=== PATIENT | female | born 1960 | race American Indian/Alaskan Native ===

== ENCOUNTER 2018-12-04 01:22 | Emergency (ER) | payer OTHER ==
[2018-12-04 01:28] VITALS: BP 141/85
[2018-12-04] MEDS ORDERED: ZOFRAN IV ONE (01:44)
[2018-12-04] MEDS ORDERED: DILAUDID IV ONE (01:44)
[2018-12-04] MEDS ORDERED: BOOSTRIX IM ONE (01:45)
--- NOTE | 2018-12-04 01:53 | Emergency Department Report ---
HPI - General Chief Complaint: Extremity Injury, Upper Time Seen by Provider: 12/04/18 01:40 - HPI HPI: Room 35 The patient is a 58-year-old female presenting with a chief complaint of right wrist pain after fall. The patient states just prior to arrival a dog began running at her and she fell backwards while trying to get away landing on her right wrist. Patient denies loss of consciousness. Patient complains of pain in the right wrist only. Patient states she was not bitten by the dog. Patient gets her pain score of 9/10 ED Past Medical Hx - Past Medical History Previous Medical History?: No - Surgical History Past Surgical History?: Yes Additional Surgical History: fibroids - Family History Family history: no significant - Social History Smoking Status: Never Smoker Substance Use Type: None, Alcohol (occasional) - Medications Home Medications: Home Medications Medication Instructions Recorded Confirmed Last Taken Type HYDROcodone/APAP 5-325 [[place] 1 - 2 each PO Q6HR PRN #30 tablet 12/04/18 Unknown Rx 5/325] Ibuprofen [Motrin 800 MG tab] 800 mg PO Q8HR PRN #20 tablet 12/04/18 Unknown Rx ED Review of Systems ROS: Stated complaint: RIGHT WRIST PAIN Other details as noted in HPI Constitutional: no symptoms reported Eyes: denies: eye pain ENT: denies: throat pain Respiratory: no symptoms reported Cardiovascular: denies: chest pain Endocrine: no symptoms reported Gastrointestinal: denies: abdominal pain Genitourinary: denies: dysuria Musculoskeletal: arthralgia Skin: other (abrasion to right elbow) Neurological: denies: headache Physical Exam - Physical Exam Vital Signs: Vital Signs 12/04/18 01:25 Temperature 98 F Pulse Rate 85 Respiratory 12 Rate Blood Pressure 141/85 O2 Sat by Pulse 98 Oximetry Physical Exam: GENERAL: The patient is well-developed well-nourished female sitting in chair appearing to be mild discomfort HEENT: Normocephalic. Atraumatic. Extraocular motions are intact. Patient has moist mucous membranes. NECK: Supple. Trachea midline CHEST/LUNGS: Clear to auscultation. There is no respiratory distress noted. HEART/CARDIOVASCULAR: Regular. There is no tachycardia. ABDOMEN: Abdomen is soft, nontender. Patient has normal bowel sounds. There is no abdominal distention. SKIN: There is no rash. There is no edema. There is no diaphoresis. NEURO: The patient is awake, alert, and oriented. The patient is cooperative. The patient has no focal neurologic deficits. The patient has normal speech and gait. MUSCULOSKELETAL: There is pain to the right distal radius ED Course Vital Signs 12/04/18 01:25 Temperature 98 F Pulse Rate 85 Respiratory 12 Rate Blood Pressure 141/85 O2 Sat by Pulse 98 Oximetry ED Medical Decision Making - Radiology Data Radiology results: report reviewed (right wrist x-ray), image reviewed (right wrist x-ray) interpreted by me: Right wrist [id number] radius fracture [facility] [address] [place] [address] XRay Report Signed Patient: GENI PREEYRA MR#: [id number] : 1960 Acct:[id number] Age/Sex: 58 / F ADM Date: 12/04/18 Loc: ED Attending Dr: Ordering Physician: JAYSON BURNHAM Date of Service: 12/04/18 Procedure(s): XR wrist 2V RT Accession Number(s): [id number] cc: JAYSON BURNHAM Fluoro Time In Minutes: RIGHT WRIST, 2 VIEWS 12/04/2018 INDICATION / CLINICAL INFORMATION: pain and swelling, S/P fall. COMPARISON: None available. FINDINGS: Distal radial fracture with slight dorsal angulation. Carpal alignment is normal. Signer Name: Festus Bell MD Signed: 12/04/2018 1:52 AM Workstation Name: [id number] Transcribed By: [place] Dictated By: Festus Bell MD Electronically Authenticated By: Festus Bell MD Signed Date/Time: 12/04/18151 DD/ 0 TD/TT: - Differential Diagnosis distal radius fracture Critical care attestation.: If time is entered above; I have spent that time in minutes in the direct care of this critically ill patient, excluding procedure time. ED Disposition Clinical Impression: Fracture of right distal radius Disposition: DC-01 TO HOME OR SELFCARE Is pt being admited?: No Does the pt Need Aspirin: No Condition: Stable Instructions: Wrist Fracture in Adults (ED) Prescriptions: Ibuprofen [Motrin 800 MG tab] 800 mg PO Q8HR PRN #20 tablet PRN Reason: Pain, Moderate (4-6) HYDROcodone/APAP 5-325 [[place] 5/325] 1 - 2 each PO Q6HR PRN #30 tablet PRN Reason: Pain Referrals: JENNIFER VALENTIN MD [Staff Physician] - [facility] (Dr. Valentin is an orthopedic surgeon. Please follow up with him further evaluation) Time of Disposition: 02:11
--- NOTE | 2018-12-04 01:56 | XRay Report ---
RIGHT WRIST, 2 VIEWS 12/04/2018 INDICATION / CLINICAL INFORMATION: pain and swelling, S/P fall. COMPARISON: None available. FINDINGS: Distal radial fracture with slight dorsal angulation. Carpal alignment is normal. Signer Name: Festus Bell MD Signed: 12/04/2018 1:52 AM Workstation Name: [id number]
== END 2018-12-04 02:54 | disposition home or self-care (01) ==
LOC: ED 01:22
DX: S52.501A Unspecified fracture of the lower end of right radius, initial encounter for closed fracture (principal); Z79.899 Other long term (current) drug therapy; W01.0XXA Fall on same level from slipping, tripping and stumbling without subsequent striking against object, initial encounter; Y93.02 Activity, running; Y92.89 Other specified places as the place of occurrence of the external cause; Y99.8 Other external cause status
CPT/HCPCS: 73100; 90471; 90715; 96374; 96375; 99283; J1170; J2405